=== PATIENT | female | born 1960 | race Caucasian/White ===

== ENCOUNTER 2022-05-23 19:48 | Emergency (ER) | payer MEDICARE ==
--- OUTSIDE RECORDS SUMMARY | 2022-05-23 19:52 | XMS REPORT | Continuity of Care Document ---
:1960 Author Organization [facility] t Address [address] [facility] [address] [place] [address] Care Team Providers Name Role Phone Lina Worrell Attending Clinician Nirali Canseco Attending Clinician Frieda Attending Clinician Unavailable Reji Leyva Attending Clinician Crescencio Attending Clinician Unavailable Isaiah Rodríguez Attending Clinician Frieda Admitting Clinician Unavailable Crescencio Admitting Clinician Unavailable Payers Payer Name Policy Type Policy Number Effective Date Expiration Date [facility] [id number] 2021 (MEDICARE 00:00:00 REPLACEMENT HMO) [facility] [id number] Problems Condition Condition Condition Status Onset Resolution Last Treating Co mments Source Name Details Category Date Date Treatment Clinician Date N/A N/A Diagnosis Active 2018-12-12 Mem oria Active 11-05 11:15:00 l 11/05/2018 00:00: Cornelio LOPEZ 00 [facility] Cervical Cervical Problem Active [place] disc Disc 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 Disorder 00:00: Medica l 00 Group Injury of Injury of Problem Active [place] shoulder Shoulder 8-09 da and upper and Upper 00:00: Medi karen arm Arm 00 Group Neck pain Neck pain Problem Resolve 2018-11-17 Memoria (finding) (finding) d 21:39:47 l Resolved [place] Problem 11/17/2018 [facility] Anxiety Anxiety Problem Resolve 2018-11-17 M emoria (finding) (finding) d 21:39:47 l Resolved [place] Problem 11/17/2018 [facility] Heartburn Problem Resolve 2018-11-17 M emoria (finding) Heartburn d 21:39:47 l (finding) [place] Resolved Problem 11/17/2018 [facility] Allergies, Adverse Reactions, Alerts Allergy Allergy Status Severity Reaction(s) Onset Inactive Treating Comm ents Source Name Type Date Date Clinician Cipro Allergy Active [place] to [facility] ciproflo ciproflo Active Memori a xacin xacin l [place] clindamy clindamy Active Memori a usha usha l [place] amoxicil amoxicil Active Memori a brenda brenda l Deni traMADol traMADol Active Memori a l [place] Social History Social Habit Start Date Stop Date Quantity Comments Source Social History 2018-11-12 2018-11-12 [facility] renu 17:00:43 17:00:43 Smoking Status Start Date Stop Date Source Former Smoker [facility] Medications Ordered Filled Start Stop Current Ordering Indication Dosage Frequency Signature Comments Components Source Medication Medication Date Date Medication? Clinician (SIG) Name Name Docusate No Notes: Memoria Sodium 100 11-15 (Same as: l MG Oral 22:00: Colace) [place] Capsule 00 (Do Not [Colace] Crush) Acetaminoph Yes 1 tab, PO, Memoria en 300 MG / 11-15 Q6H, PRN l Codeine 14:26: Pain Score Herm tyler Phosphate 00 4-6, X 5 30 MG Oral day, # 20 Tablet tab, 0 [Tylenol Refill(s) with Codeine #3] Fluticasone No Notes: Yves taylor propionate 8- (Same as: l 0.05 14:00: Flonase) Deni MG/ACTUAT 00 Metered Dose Nasal [place] [Flonase] Vancomycin No 2001 mg: Me moria 8- infuse l 02:00: over 2.5 [place] 00 hours cyclobenzap No Notes: Yves taylor rine 8- (Same As: l 02:00: Flexeril) Omeprazole No 20 mg, Memor ia 11-14 Route: PO, l 22:00: Drug form: ECTAB, QPM, Dosing Weight 73.2, kg, Start date: 11/14/18 17:00:00 CDT, Duration: 30 day, Stop date: 12/13/18 17:00:00 CDT Protonix No Notes: Memoria 8- Tablet l 22:00: should not be chewed or crushed. (Same as: Protonix) Alprazolam No Notes: Memor ia 0.25 MG 11-14 With food l Oral Tablet 21:04: or milk Her (Same as: Xanax) Acetaminoph No Notes: Do M emoria en 300 MG / 11-14 not exceed l Codeine 20:25: 4gm/day of Herm acetaminop 30 MG Oral hen. (Same Tablet as: [Tylenol Tylenol with with Codeine #3] Codeine # 3) Zofran No Notes: Memoria 11-14 (Same as: l 20:21: Zofran) MEDICATION WASTE Product Size: 4 mg Product Wasted: ___ mg Reglan No Notes: Memoria 11-14 (Same as: l 20:10: Reglan) Zofran No 4 mg, Memoria 11-14 Route: IV, l 20:09: Drug form: INJ, Q4H, Dosing Weight 73.2, kg, PRN Nausea, Start date: 11/14/18 15:09:00 CDT, Duration: 30 day, Stop date: 12/14/18 15:08:00 CDT, 0 Reglan No 10 mg, Memoria 11-14 Route: IV, l 17:36: ONCE, Dosing Weight 73.2, kg, Start date: 11/14/18 12:36:00 CDT, Stop date: 11/14/18 12:36:00 CDT Dilaudid No 0.5 mg, Memori a 11-14 Route: l 16:54: IVP, ONCE, Dosing Weight 73.2, kg, Priority: STAT, Start date: 11/14/18 11:54:00 CDT, Stop date: 11/14/18 11:54:00 CDT Alprazolam No Notes: Memor ia 0.25 MG 11-14 With food l Oral Tablet 16:11: or milk Her sage 00 (Same as: Xanax) glycopyrrol No Route: IV, Memoria ate (ANES) 11-14 Drug form: l 16:10: INJ, ONCE, Stop date: 11/14/18 11:10:00 CDT neostigmine No Route: IV, Memoria (ANES) 11-14 Drug form: l 16:10: INJ, ONCE, Stop date: 11/14/18 11:10:00 CDT 1/2NS + KCL No Notes: Yves taylor 20mEq/L 11-14 PREMIX IV l 1000ml 16:06: - Do Not [place] (Premix) 00 Alter 1,000 mL WASTE: F/P - Sink; E - Municipal Trash Bin Acetaminoph No Notes: Do M emoria en 325 MG / 11-14 not exceed l Hydrocodone 16:06: 4gm/day of Deni Bitartrate 00 acetaminop 10 MG Oral hen. (Same Tablet as: Hollis [Hollis 325/10) 10/325] Zofran No Notes: Memoria 11-14 (Same as: l 16:06: Zofran) [place] 00 Morphine No Notes: Memoria 11-14 (Same l 16:06: as:MORPhin Deni 00 e Sulfate) ondansetron No Route: IV, Memoria (ANES) 11-14 Drug form: l 16:00: INJ, ONCE, Stop date: 11/14/18 11:00:00 CDT dexamethaso No Route: IV, Memoria ne (ANES) 11-14 Drug form: l 14:43: INJ, ONCE, Deni 00 Stop date: 11/14/18 9:43:00 CDT midazolam No Route: IV, Me moria (ANES) 11-14 Drug form: l 14:38: SOLN, ONCE, Stop date: 11/14/18 9:38:00 CDT fentaNYL 2019- No Route: IV, Mem oria (ANES) 11-14 Drug form: l 14:38: INJ, ONCE, Stop date: 11/14/18 9:38:00 CDT propofol 2019- No Route: IV, Mem oria (ANES) 11-14 Drug form: l 14:38: INJ, ONCE, Stop date: 11/14/18 9:38:00 CDT rocuronium 2018- No Route: IV, M emoria (ANES) 11-14 Drug form: l 14:38: INJ, ONCE, Stop date: 11/14/18 9:38:00 CDT lidocaine 2018- No Route: IV, Me moria (ANES) 11-14 Drug form: l 14:38: INJ, ONCE, Stop date: 11/14/18 9:38:00 CDT propofol 2018- No Route: IV, Mem oria (ANES) 10 11-14 Drug form: l mg 13:55: INJ, Start date: 11/14/18 8:55:00 CDT, Stop date: 11/14/18 9:55:00 CDT sodium No Route: IV, Memor ia chloride 11-14 Drug form: l (ANES) 19 13:55: INJ, Start He mL + date: remifentani 11/14/18 l (ANES) 1 8:55:00 mg CDT, Stop date: 11/14/18 9:55:00 CDT vancomycin 2018- No Route: IV, M emoria (ANES) 1.5 11-14 Drug form: l gm 13:50: INJ, Start date: 11/14/18 8:50:00 CDT, Stop date: 11/14/18 9:50:00 CDT Isolyte S No Route: IV, Me moria PH 7.4 11-14 Total l (ANES) 1000 13:30: Volume: Her sage mL 00 1,000, Start date: 11/14/18 8:30:00 CDT, Stop date: 11/14/18 9:30:00 CDT Hydralazine No Notes: Yves taylor 11-14 (Same as: l 13:05: Apresoline ) Push over 5 minutes Labetalol No Notes: Memori a 11-14 (Same as: l 13:05: Normodyne, Trandate) Push over 2 minutes Give bolus over 2-3 minutes. Acetaminoph No Notes: Yves taylor en 11-14 Infuse l 13:05: over 15 minutes Do not exceed 4gm/day of acetaminop hen MEDICATION WASTE Product Size: 1000 mg Product Wasted: ___ mg Morphine No Notes: Memoria 11-14 (Same l 13:05: as:MORPhin e Sulfate) Hydromorpho No Notes: Yves taylor ne 11-14 Same as l 13:05: Dilaudid Flumazenil No Notes: Memor ia 11-14 (Same as: l 13:05: Romazicon) Naloxone No Notes: Memoria 11-14 Same as l 13:05: Narcan Ondansetron No Notes: Yves taylor 11-14 (Same as: l 13:05: Zofran) MEDICATION WASTE Product Size: 4 mg Product Wasted: ___ mg Dexamethaso No Notes: Yves taylor ne 11-14 Concentrat l 13:05: ion: 00 4mg/ml Omeprazole Yes 20 mg = 1 Me moria 20 MG 8-26 tab, PO, l Enteric 16:34: QPM, 0 [place] Coated 00 Refill(s) Tablet [Prilosec] Chlorphenir Yes 1 tab, PO, Memoria amine 8-26 BID, PRN l Maleate 4 16:32: as needed Her sage MG / 00 for Phenylephri allergy ne symptoms, Hydrochlori 0 de 10 MG Refill(s) Oral Tablet [Sudafed PE Sinus & Allergy] Fish Oil Yes 2,000 mg = Mem oria 1000 mg 8-26 2 cap, PO, l oral 16:31: QPM, 0 Deni capsule 00 Refill(s) Aspirin 81 Yes 81 mg = 1 Me moria MG Enteric 8- tab, PO, l Coated 16:30: QPM Deni Tablet 00 Alprazolam Yes 0.25 mg = Me moria 0.25 MG 11-12 1 tab, PO, l Oral Tablet 16:29: Daily, PRN Deni 00 as needed for anxiety cyclobenzap Yes 10 mg = 1 M emoria rine 10 mg 11-12 tab, PO, l oral tablet 16:28: Bedtime, 0 [place] 00 Refill(s) Fluticasone Yes 1 spray, Me moria propionate 11-12 NASAL, l 0.05 16:27: Daily, 0 Deni MG/ACTUAT 00 Refill(s) Metered Dose Nasal [place] [Flonase] alprazolam alprazolam No alprazolam [place] 0.25 mg 0.25 mg 0.25 mg da tablet tablet tablet [facility] cyclobenzap cyclobenzap No cyclobenza [place] rine 10 mg rine 10 mg sara 10 da tablet tablet mg tablet [facility]ica [facility] Vital Signs Vital Name Observation Time Observation Value Comments Source BP Diastolic 2018-08-24 00:00:00 84 [facility] Height 2018-08-24 00:00:00 62.5 [in_i] [facility] BMI (Body Mass 2018-08-24 00:00:00 29.7 kg/m2 [facility] Medical Index) Group BP Systolic 2018-08-24 00:00:00 131 mm[Hg] [facility] Body Weight 2018-08-24 00:00:00 2640 [oz_av] [facility] BP Diastolic 2018-06-25 00:00:00 87 mm[Hg] [facility] Height 2018-06-25 00:00:00 62.5 [in_i] [facility] BMI (Body Mass 2018-06-25 00:00:00 30.1 kg/m2 [facility] Medical Index) Group BP Systolic 2018-06-25 00:00:00 128 mm[Hg] [facility] Body Weight 2018-06-25 00:00:00 2672 [oz_av] [facility] BP Diastolic 2018-04-27 00:00:00 81 mm[Hg] [facility] Height 2018-04-27 00:00:00 62.5 [in_i] [facility] BMI (Body Mass 2018-04-27 00:00:00 29.7 kg/m2 [facility] Medical Index) Group BP Systolic 2018-04-27 00:00:00 124 mm[Hg] [facility] Body Weight 2018-04-27 00:00:00 2640 [oz_av] [facility] BP Diastolic 2018-03-15 00:00:00 90 mm[Hg] [facility] Height 2018-03-15 00:00:00 62.5 [in_i] [facility] BMI (Body Mass 2018-03-15 00:00:00 29.2 kg/m2 [facility] Medical Index) Group BP Systolic 2018-03-15 00:00:00 125 mm[Hg] [facility] Body Weight 2018-03-15 00:00:00 2592 [oz_av] [facility] Temperature Oral (F) 2018-11-15 13:00:00 97.8 F [facility] Heart Rate 2018-11-15 13:00:00 [facility] Respitory Rate 2018-11-15 13:00:00 Memori al [place] Systolic (mm Hg) 2018-11-15 13:00:00 Yves rial [place] Diastolic (mm Hg) 2018-11-15 13:00:00 Mem orial [place] Height 2018-11-15 10:00:00 154.94 cm [facility] Temperature Oral (F) 2018-11-15 09:00:00 97.6 F [facility] Heart Rate 2018-11-15 09:00:00 [facility] [place] Respitory Rate 2018-11-15 09:00:00 Memori al Deni Systolic (mm Hg) 2018-11-15 09:00:00 Yevs rial Deni Diastolic (mm Hg) 2018-11-15 09:00:00 Mem orial Deni Temperature Oral (F) 2018-11-15 05:00:00 97.8 F [facility] Heart Rate 2018-11-15 05:00:00 [facility] Respitory Rate 2018-11-15 05:00:00 Melanie dodd [place] Systolic (mm Hg) 2018-11-15 05:00:00 Yves husain [place] Diastolic (mm Hg) 2018-11-15 05:00:00 Mem orial [facility] Height 2018-11-15 00:09:00 154.94 cm [facility] Weight 2018-11-15 00:09:00 [facility] BMI Calculated 2018-11-15 00:09:00 Memori al [place] Height 2018-11-12 16:40:00 157.48 cm [facility] [place] Weight 2018-11-12 16:40:00 [facility] BMI Calculated 2018-11-12 16:40:00 Melanie al [place] Procedures Procedure Date / Time Performing Clinician Source Performed MRI, cervical spine, w/o 2018-04-06 00:00:[address] [facility] Medical contrast Group PCL - Reconstruction of [facility] posterior cruciate ligament Skin operation [facility] Encounters Start End Encounter Admission Attending Care Care Encounter Source Date/Time Date/Time Type Type Clinicians Facility Department ID 2022-04-29 2022-04-29 CAV Sera [id number]. [id number]. [facility] [id number] [facility] 19:00:00 20:00:00 Iyanoye [id number] Medical [id number] 2022-01-18 2022-01-18 CAV Nirali 2.16.840. [id number]. [facility] [id number] [facility] 19:00:00 20:00:00 Ajith [id number] [id number] Medical [id number] 2021-10-07 2021-10-07 CAV Nirali 2.16.840. 2.16.840.1. [facility] [id number] [facility] 14:00:00 15:00:00 Ajith [id number] Medical [id number] 2021-10-05 2021-10-05 Outpatient Thomas_T [facility] [id number] [facility] 10:02:00 10:02:00 0719 Medica l Group 2021-10-01 2021-10-01 [facility] [id number] [facility] 06:19:00 06:19:00 0715 Medica l Group 2021-06-30 2021-06-30 Care Marlisa 2.16.840. 2.16.840.1. [facility] [id number] [facility] 14:30:00 15:00:00 OnDejoon Leyva [id number] [id number] [facility] [id number] 2020-12-21 2020-12-21 Outpatient [facility] [id number] [facility] 08:00:00 08:00:00 1004 Medica l Group 2019-05-06 2019-05-06 Outpatient A_Tamrard [facility] [id number] [place] 12:07:00 12:07:00 0217 Medical Group 2018-11-14 2018-11-15 [facility] [id number] Memoria 16:06:00 17:02:00 sukhi Cheema 00 l [facility] 2018-11-14 2018-11-15 Outpatient Anne [facility] [id number] 11:06:00 12:02:00 Isaiah Torrie 00 2018-11-14 2018-11-14 Outpatient [facility] [id number] [facility] 11:06:00 11:06:00 2018-08-24 2018-08-24 Miranda Martinez [facility] [place] [place] - [address] [place] 00:00:00 00:00:00 MD Mazin: [address] [place] [address] , Ph. 2018-06-25 2018-06-25 Miranda [place] - [address] [place] 00:00:00 00:00:00 MD Mazin: [address] [address], [place] [address] , Ph. 2018-04-27 2018-04-27 Miranda Martinez [facility] [place] - [address] [place] 00:00:00 00:00:00 MD Mazin: [address] [facility] [address], [place] [address] , Ph. 2018-03-15 2018-03-15 [place] - [address] [place] 00:00:00 00:00:00 MD Mazin: [address] [facility] - [address], [place] [address] , Ph. Results Test Description Test Time Test Comments Results Result Comments Source [facility] 2018-11-15 10:20:00 Test Item Value Reference Range Interpretation Comme nts AGAP (test code = AGAP) 13.9 10.0-20.0 [facility]LJ2074-36-40 10:20:00 Test Item Value Reference Range Interpretation Comments Glucose Lvl (test code = Glucose Lvl) 112 70-99 [facility]CkogadkVBXBROARNPCU1797-01-20 10:20:00 Test Item Value Reference Range Interpretation Comments BUN (test code = BUN) 14 7-22 [facility]HhtkbhzRWLMHOMAGVGJ8244-59-01 10:20:00 Test Item Value Reference Range Interpretation Comments Creatinine Lvl (test code = Creatinine 0.60 0.50-1.40 Lvl) [facility]ZeksxukNBTXEMJRFVLA0472-11-90 10:20:00 Test Item Value Reference Range Interpretation Comments Sodium Lvl (test code = Sodium Lvl) 142 135-145 [facility]QhlxjfxORBUQQMMZXDK5575-16-60 10:20:00 Test Item Value Reference Range Interpretation Comments Potassium Lvl (test code = Potassium 3.9 3.5-5.1 Lvl) [facility] HospitalOosefipDRNWSDTOJNZN1167-25-32 10:20:00 Test Item Value Reference Range Interpretation Comments Chloride Lvl (test code = Chloride Lvl) 109 95-109 [facility] HospitalLdwienxKRPHEVEOOMTO6333-62-50 10:20:00 Test Item Value Reference Range Interpretation Comments CO2 (test code = CO2) 23 24-32 [facility] HospitalEmrvcnyQWZDWCIUXONR4000-82-77 10:20:00 Test Item Value Reference Range Interpretation Comments Calcium Lvl (test code = Calcium Lvl) 8.9 8.5-10.5 [facility] HospitalGpqanvqKYBNMENFUVCV6576-89-55 10:20:00 Test Item Value Reference Range Interpretation Comments eGFR (test code = eGFR) 102 [facility]RordsgzDDUTXMNMCK4147-76-59 10:20:00 Test Item Value Reference Range Interpretation Comments WBC (test code = WBC) 13.4 3.7-10.4 [facility] CenterXcxvbuxKUFLUWUUDE5643-29-25 10:20:00 Test Item Value Reference Range Interpretation Comments RBC (test code = RBC) 4.31 4.20-5.40 [facility] CenterRoxpeviBYUPSLJAYO7998-98-84 10:20:00 Test Item Value Reference Range Interpretation Comments Hgb (test code = Hgb) 13.5 12.0-16.0 [facility] CenterJrkicirOAUQFSLFUV2465-68-10 10:20:00 Test Item Value Reference Range Interpretation Comments Hct (test code = Hct) 39.9 36.0-48.0 [facility] CenterTdjauawDYPYVMODNT7548-21-82 10:20:00 Test Item Value Reference Range Interpretation Comments MCV (test code = MCV) 92.5 80.0-98.0 [facility] CenterIdikhkhUZRJPLTHYP2730-66-45 10:20:00 Test Item Value Reference Range Interpretation Comments MCH (test code = MCH) 31.3 pg 27.0-31.0 [facility] CenterYelhmdzIGTDZOWYDL5591-17-07 10:20:00 Test Item Value Reference Range Interpretation Comments MCHC (test code = MCHC) 33.9 32.0-36.0 [facility] CenterNpwfnofWMVNYNNNLB9329-51-20 10:20:00 Test Item Value Reference Range Interpretation Comments RDW (test code = RDW) 13.3 11.5-14.5 [facility] CenterEolpmxkBSUKUCPXYO5090-01-59 10:20:00 Test Item Value Reference Range Interpretation Comments Platelet (test code = Platelet) 196 133-450 [facility] CenterDdalyfuLFDWNDUTJK3293-03-41 10:20:00 Test Item Value Reference Range Interpretation Comments MPV (test code = MPV) 10.2 7.4-10.4 [facility] CenterBhmhypoNTUDEKVPNQ1878-25-03 10:20:00 Test Item Value Reference Range Interpretation Comments Segs (test code = Segs) 85.0 45.0-75.0 [facility] CenterTpwvhtoZTXYNGVYAL7456-96-97 10:20:00 Test Item Value Reference Range Interpretation Comments Lymphocytes (test code = Lymphocytes) 10.2 20.0-40.0 [facility] CenterTccixeiRGXYADELCP6845-67-80 10:20:00 Test Item Value Reference Range Interpretation Comments Monocytes (test code = Monocytes) 4.7 2.0-12.0 [facility] CenterLehvuqtFOONGPVDEJ1051-19-65 10:20:00 Test Item Value Reference Range Interpretation Comments Basophils (test code = 0.1 See_Comment [Aut omated message] The Basophils) system which ge nerated this result tra nsmitted reference range : <=1.0. The reference r tabatha was not used to int erpret this result as normal/abnormal . [facility] CenterPqdlasrAVKNRREEAT8252-09-37 10:20:00 Test Item Value Reference Range Interpretation Comments Neutrophils # (test code = Neutrophils 11.4 1.5-8.1 #) [facility] CenterPjetsbnOOLCOYWATN2148-71-48 10:20:00 Test Item Value Reference Range Interpretation Comments Lymphocytes # (test code = Lymphocytes 1.4 1.0-5.5 #) [facility] CenterFxtuysrIHWOSYHODU6828-59-28 10:20:00 Test Item Value Reference Range Interpretation Comments Monocytes # (test code 0.6 See_Comment [Aut omated message] The = Monocytes #) system which generated this result tra nsmitted reference range : <=0.8. The reference r tabatha was not used to int erpret this result as normal/abnormal . [facility] CenterAjtbmrpTIQHZFNBCY4652-59-54 16:44:00 Test Item Value Reference Range Interpretation Comments Monocytes (test code = Monocytes) 5.4 2.0-12.0 [facility] CenterWiuugnvEOCVTZESVE7549-12-58 16:44:00 Test Item Value Reference Range Interpretation Comments Eosinophils (test code = 0.7 See_Comment [A utomated message] The Eosinophils) system which ge nerated this result tra nsmitted reference range : <=4.0. The reference r tabatha was not used to int erpret this result as normal/abnormal . [facility] CenterWfkkrlwXQOLWRZQGN5058-66-28 16:44:00 Test Item Value Reference Range Interpretation Comments Basophils (test code = 0.4 See_Comment [Aut omated message] The Basophils) system which ge nerated this result tra nsmitted reference range : <=1.0. The reference r tabatha was not used to int erpret this result as normal/abnormal . [facility] CenterBrtarsoKDQIFGZABV3065-11-23 16:44:00 Test Item Value Reference Range Interpretation Comments Neutrophils # (test code = Neutrophils 3.1 1.5-8.1 #) [facility] CenterHpnvlpqXBRKTFCKYT9894-54-94 16:44:00 Test Item Value Reference Range Interpretation Comments Lymphocytes # (test code = Lymphocytes 2.6 1.0-5.5 #) [facility] CenterSubzyayBOARGULLWP0461-83-18 16:44:00 Test Item Value Reference Range Interpretation Comments Monocytes # (test code 0.3 See_Comment [Aut omated message] The = Monocytes #) system which generated this result tra nsmitted reference range : <=0.8. The reference r tabatha was not used to int erpret this result as normal/abnormal . [facility] CenterTuvbndmUGJIYCCDXE2604-42-22 16:44:00 Test Item Value Reference Range Interpretation Comments Eosinophils # (test code 0.0 See_Comment [A utomated message] The = Eosinophils #) system whic h generated this result tra nsmitted reference range : <=0.5. The reference r tabatha was not used to int erpret this result as normal/abnormal . [facility] CenterIgbpqroECRGTEJJHU9375-60-95 16:44:00 Test Item Value Reference Range Interpretation Comments Basophils # (test code 0.0 See_Comment [Aut omated message] The = Basophils #) system which generated this result tra nsmitted reference range : <=0.2. The reference r tabatha was not used to int erpret this result as normal/abnormal . [facility] CenterYgodqzqEHIXFXSTOF6222-49-46 16:44:00 Test Item Value Reference Range Interpretation Comments WBC (test code = WBC) 6.0 3.7-10.4 [facility] CenterYqxftuiZGIMDGQAMX0687-87-35 16:44:00 Test Item Value Reference Range Interpretation Comments RBC (test code = RBC) 4.66 4.20-5.40 [facility] CenterMdmgzewBCRJYUCNLQ3990-24-04 16:44:00 Test Item Value Reference Range Interpretation Comments Hgb (test code = Hgb) 14.3 12.0-16.0 [facility]dhijwyOGZJJHWRAV6821-[facility]-14 16:44:00 Test Item Value Reference Range Interpretation Comments Hct (test code = Hct) 42.9 36.0-48.0 [facility] HospitalGeiyatjSHADCASNJU4479-59-24 16:44:00 Test Item Value Reference Range Interpretation Comments MCV (test code = MCV) 92.1 80.0-98.0 [facility] CenterCoqizmqYDFDAYTUFR2651-19-90 16:44:00 Test Item Value Reference Range Interpretation Comments MCH (test code = MCH) 30.7 pg 27.0-31.0 [facility] HospitalHndwpgzNFPLWJBGPP4928-37-25 16:44:00 Test Item Value Reference Range Interpretation Comments MCHC (test code = MCHC) 33.3 32.0-36.0 [facility] CenterKngwymdDGPJQUBUDB9607-57-61 16:44:00 Test Item Value Reference Range Interpretation Comments RDW (test code = RDW) 13.2 11.5-14.5 [facility] CenterDuamivvRCPNCDYDKN8273-91-74 16:44:00 Test Item Value Reference Range Interpretation Comments Platelet (test code = Platelet) 193 133-450 [facility] CenterUiwbmvjNVFWTBVVVQ9708-51-21 16:44:00 Test Item Value Reference Range Interpretation Comments MPV (test code = MPV) 9.9 7.4-10.4 [facility] CenterRwnmfcwAXLOLCSIBL4421-97-24 16:44:00 Test Item Value Reference Range Interpretation Comments PTT (test code = PTT) 33.8 s 22.9-35.8 [facility] CenterNhscfrdYUSDWMMLKW7648-57-49 16:44:00 Test Item Value Reference Range Interpretation Comments INR (test code = INR) 0.93 1 0.85-1.17 [facility] CenterTdtvudcHGCZSIYOAA4641-90-34 16:44:00 Test Item Value Reference Range Interpretation Comments PT (test code = PT) 12.3 s 12.0-14.7 [facility]MjrycxfHQALMJQIYY6376-03-01 16:44:00 Test Item Value Reference Range Interpretation Comments HIV Ag/Ab 4th Gen Negative *NA*(11/12/18 (test code = HIV 11:44 AM) Ag/Ab 4th Gen) [facility] BANK [id number] 16:44:00 Test Item Value Reference Range Interpretation Comments ABO/Rh (test code = ABO/Rh) O POS [facility] BANK [id number] 16:44:00 Test Item Value Reference Range Interpretation Comments Antibody Scrn (test Negative (11/12/18 code = Antibody Scrn) 11:44 AM) [facility]2019-08-26 16:44:00 Test Item Value Reference Range Interpretation Comments Glucose Lvl (test code = Glucose Lvl) 102 70-99 [facility]2019-08-26 16:44:00 Test Item Value Reference Range Interpretation Comments BUN (test code = BUN) 18 7-22 [facility]2019-08-26 16:44:00 Test Item Value Reference Range Interpretation Comments Creatinine Lvl (test code = Creatinine 0.80 0.50-1.40 Lvl) [facility]2019-08-26 16:44:00 Test Item Value Reference Range Interpretation Comments Sodium Lvl (test code = Sodium Lvl) 142 135-145 [facility]2019-08-26 16:44:00 Test Item Value Reference Range Interpretation Comments Potassium Lvl (test code = Potassium 4.2 3.5-5.1 Lvl) [facility]2019-08-26 16:44:00 Test Item Value Reference Range Interpretation Comments Chloride Lvl (test code = Chloride Lvl) 107 95-109 [facility]2019-08-26 16:44:00 Test Item Value Reference Range Interpretation Comments CO2 (test code = CO2) 26 24-32 [facility]2019-08-26 16:44:00 Test Item Value Reference Range Interpretation Comments Calcium Lvl (test code = Calcium Lvl) 9.3 8.5-10.5 [facility]2019-08-26 16:44:00 Test Item Value Reference Range Interpretation Comments eGFR (test code = eGFR) 83 [facility]2019-08-26 16:44:00 Test Item Value Reference Range Interpretation Comments AGAP (test code = AGAP) 13.2 10.0-20.0 [id number] 16:44:00 Test Item Value Reference Range Interpretation Comments Segs (test code = Segs) 51.0 45.0-75.0 [id number] 16:44:00 Test Item Value Reference Range Interpretation Comments Lymphocytes (test code = Lymphocytes) 42.5 20.0-40.0 Kaila Cheema
[2022-05-23 21:38] LABS: Absolute Lymphocytes (CBC) 3.4 K/uL (0.7-4.9); Hematocrit 43.1 % (36.0-45.0); Lymphocytes % 46.8 % (15.3-44.8); MCV 92.3 fL (80-100); MPV 9.4 fL (7.6-11.3); RBC Red Blood Cell Count 4.67 M/uL (3.86-4.86)
--- NOTE | 2022-05-23 21:43 | RAD REPORT ---
EXAM DESCRIPTION: Tameka Veliz (2 Views)05/23/2022 9:33 pm CLINICAL HISTORY: Congestion COMPARISON: None FINDINGS: The lungs appear clear of acute infiltrate. The heart is normal size IMPRESSION: No acute abnormalities displayed
[2022-05-23 21:55] LABS: ALT/SGPT 49 U/L (13-56); AST/SGOT 25 U/L (15-37); Albumin 3.9 g/dL (3.4-5.0); Alkaline Phosphatase 96 U/L (45-117); BUN Blood Urea Nitrogen 16 mg/dL (7-18); Bicarbonate 32 mmol/L (21-32); Bilirubin Total 0.2 mg/dL (0.2-1.0); Glomerular Filtration Rate 64 ml/min (=/>90); Glucose Level 111 mg/dL (74-106); Potassium 3.8 mmol/L (3.5-5.1); Protein, Total 7.5 g/dL (6.4-8.2); Sodium Level 139 mmol/L (136-145); Troponin High Sensitivity 3.1 pg/mL (<58.9)
[2022-05-23 21:56] LABS: Bilirubin Direct < 0.1 mg/dL (0-0.2)
--- NOTE | 2022-05-23 22:35 | ER ---
Nurse's Notes [facility] Name: Abigail Carrizales Age: 62 yrs Sex: Female : 1960 Arrival Date: 05/23/2022 Time: 19:54 Bed DIS5 Private MD: Diagnosis: Nasal congestion;Upper respiratory congestion, seasonal allergy, feeling unwell, noncardiac chest pain, dizziness Presentation: 05/23 20:45 Chief complaint: Patient states: pt was diagnosed with strep a week ago and treated but bb she is also having chest pressure and is feeling light-headed she was sent her for a cardiac work-up by urgent care today. Coronavirus screen: At this time, the client does not indicate any symptoms associated with coronavirus-19. Ebola Screen: No symptoms or risks identified at this time. Initial Sepsis Screen: Does the patient meet any 2 criteria? No. Patient's initial sepsis screen is negative. Does the patient have a suspected source of infection? No. Patient's initial sepsis screen is negative. Risk Assessment: Do you want to hurt yourself or someone else? Patient reports no desire to harm self or others. Onset of symptoms was May 17, 2022. 20:45 Method Of Arrival: Ambulatory bb 20:45 Acuity: HUMPHREY 3 bb Triage Assessment: 20:47 General: Appears in no apparent distress. Behavior is calm, cooperative. Pain: bb Complains of pain in chest Pain currently is 5 out of 10 on a pain scale. Neuro: Level of Consciousness is awake, alert, obeys commands, Oriented to person, place, time, situation. Cardiovascular: Capillary refill < 3 seconds Patient's skin is warm and dry. Respiratory: Respiratory effort is unlabored, Respiratory pattern is regular. GI: No signs and/or symptoms were reported involving the gastrointestinal system. Derm: Skin is pink, warm \T\ dry. Musculoskeletal: Circulation, motion, and sensation intact. Historical: - Allergies: 20:47 PENICILLINS; bb 20:47 Ciprofloxacin; bb 20:47 Bactrim; bb 20:47 tramadol; bb - Home Meds: 20:47 None [Active]; bb - PMHx: 20:47 Hypercholesterolemia; basal cell of skin; bb - PSHx: 20:47 Moh's procedure; bb - Immunization history:: Client reports having NOT received the Covid vaccine. - Social history:: Smoking status: Patient reports the use of cigarette tobacco products. - Family history:: not pertinent. - Hospitalizations: : No recent hospitalization is reported. Screenin:30 [facility] ED Fall Risk Assessment (Adult) History of falling in the last 3 months, jb4 including since admission No falls in past 3 months (0 pts) Confusion or Disorientation No (0 pts) Score/Fall Risk Level 0 - 2 = Low Risk Oriented to surroundings, Maintained a safe environment. Abuse screen: Denies threats or abuse. Nutritional screening: No deficits noted. Tuberculosis screening: No symptoms or risk factors identified. Assessment: 22:30 General: Appears in no apparent distress. comfortable, Behavior is calm, cooperative, jb4 appropriate for age. Pain: Complains of pain in chest Pain does not radiate. Pain currently is 5 out of 10 on a pain scale. Quality of pain is described as aching. Neuro: Level of Consciousness is awake, alert, obeys commands, Oriented to person, place, time, situation. Cardiovascular: Patient's skin is warm and dry. Respiratory: Airway is patent Respiratory effort is even, unlabored, Respiratory pattern is regular, symmetrical. GI: No signs and/or symptoms were reported involving the gastrointestinal system. : No signs and/or symptoms were reported regarding the genitourinary system. EENT: No signs and/or symptoms were reported regarding the EENT system. Derm: Skin is intact, Skin is pink, warm \T\ dry. Musculoskeletal: Circulation, motion, and sensation intact. Range of motion: intact in all extremities. Vital Signs: 20:45 BP 147 / 96; Pulse 83; Resp 16 S; Temp 98(O); Pulse Ox 100% on R/A; Weight 73.03 kg bb (R); Height 5 ft. 2 in. (157.48 cm) (R); Pain 5/10; 20:45 Body Mass Index 29.45 (73.03 kg, 157.48 cm) bb ED Course: 19:54 Patient arrived in ED. ja2 20:47 Triage completed. bb 20:47 Arm band placed on. bb 21:01 Shadi Hdz MD is Attending Physician. sp4 21:31 Basic Metabolic Panel Sent. rv1 21:32 CBC with Diff Sent. rv1 21:32 LFT's Sent. rv1 21:32 Troponin HS Sent. rv1 21:32 Inserted saline lock: 20 gauge in left antecubital area, using aseptic technique. Blood rv1 collected. 22:23 Aniceto Leone, RN is Primary Nurse. jb4 22:30 Patient has correct armband on for positive identification. Placed in gown. Bed in low jb4 position. Call light in reach. Side rails up X 1. Client placed on continuous cardiac and pulse oximetry monitoring. NIBP monitoring applied. quality assurance monitor final on. 23:07 No provider procedures requiring assistance completed. IV discontinued, intact, jb4 bleeding controlled, No redness/swelling at site. Pressure dressing applied. Patient maintains SpO2 saturation greater than 95% on room air. Administered Medications: 22:36 Drug: Benadryl (diphenhydrAMINE) 50 mg Route: PO; jb4 Medication: 22:30 VIS not applicable for this client. jb4 Outcome: 22:35 Discharge ordered by . sp4 23:07 Discharged to home ambulatory. jb4 23:07 Condition: stable 23:07 Discharge instructions given to patient, Instructed on discharge instructions, follow up and referral plans. medication usage, Demonstrated understanding of instructions, follow-up care, medications, Prescriptions given X 2. 23:07 Patient left the ED. jb4 Signatures: Mariana Gross RN RN bb Aniceto Leone, RN RN jb4 Nadiya Bejarano Rebecca rv1 Shadi Hdz MD MD sp4
--- NOTE | 2022-05-23 22:35 | EDPHYS ---
[facility] Name: Abigail Carrizales Age: 62 yrs Sex: Female : 1960 Arrival Date: 05/23/2022 Time: 19:54 Bed DIS5 Private MD: ED Physician Shadi Hdz HPI: 05/23 21:01 This 62 yrs old Female presents to ER via Ambulatory with complaints of sp4 Dizziness, Chest Pressure, Back Pain. 21:14 Very pleasant 62-year-old female presents to the ER feeling unwell and with some sp4 shortness of breath starting on 05/14/2022. Patient was evaluated at the [place] emergency walking department and had normal chest x-ray, she was treated for streptococcal pharyngitis with Rocephin injection and was prescribed cefdinir p.o., today patient reported some dizziness, chest discomfort, and some dyspnea as well, she denied fever and denied vomiting. Historical: - Allergies: 20:47 PENICILLINS; bb 20:47 Ciprofloxacin; bb 20:47 Bactrim; bb 20:47 tramadol; bb - Home Meds: 20:47 None [Active]; bb - PMHx: 20:47 Hypercholesterolemia; basal cell of skin; bb - PSHx: 20:47 Moh's procedure; bb - Immunization history:: Client reports having NOT received the Covid vaccine. - Social history:: Smoking status: Patient reports the use of cigarette tobacco products. - Family history:: not pertinent. - Hospitalizations: : No recent hospitalization is reported. ROS: 21:14 Constitutional: Negative for fever, chills, and weight loss, patient reported some sp4 dizziness and feeling unwell Eyes: Negative for injury, pain, redness, and discharge, ENT: Negative for injury, pain, and discharge, Neck: Negative for injury, pain, and swelling, Cardiovascular: Negative for palpitations, and edema, positive for chest discomfort and for shortness of breath Respiratory: Negative for cough, wheezing, and pleuritic chest pain, positive for shortness of breath Abdomen/GI: Negative for abdominal pain, nausea, vomiting, diarrhea, and constipation, Back: Negative for injury and pain, : Negative for injury, bleeding, discharge, and swelling, MS/Extremity: Negative for injury and deformity, Skin: Negative for injury, rash, and discoloration, Neuro: Negative for headache, weakness, numbness, tingling, and seizure, Psych: Negative for depression, anxiety, suicide ideation, homicidal ideation, and hallucinations, Allergy/Immunology: Negative for hives, rash, and allergies, Endocrine: Negative for neck swelling, polydipsia, polyuria, polyphagia, and marked weight changes, Hematologic/Lymphatic: Negative for swollen nodes, abnormal bleeding, and unusual bruising. Exam: 21:14 Constitutional: This is a well developed, well nourished patient who is awake, alert, sp4 and in no acute distress. Head/Face: Normocephalic, atraumatic. Eyes: Pupils equal round and reactive to light, extra-ocular motions intact. Lids and lashes normal. Conjunctiva and sclera are non-icteric and not injected. Cornea within normal limits. Periorbital areas with no swelling, redness, or edema. ENT: Nares patent. No nasal discharge, no septal abnormalities noted. Tympanic membranes are normal and external auditory canals are clear. Oropharynx with no redness, swelling, or masses, exudates, or evidence of obstruction, uvula midline. Mucous membranes moist. Neck: Trachea midline, no thyromegaly or masses palpated, and no cervical lymphadenopathy. Supple, full range of motion without nuchal rigidity, or vertebral point tenderness. No Meningismus. Chest/axilla: Normal chest wall appearance and motion. Nontender with no deformity. No lesions are appreciated. Cardiovascular: Regular rate and rhythm with a normal S1 and S2. No gallops, murmurs, or rubs. Normal PMI, no JVD. No pulse deficits. Respiratory: Lungs have equal breath sounds bilaterally, clear to auscultation and percussion. No rales, rhonchi or wheezes noted. No increased work of breathing, no retractions or nasal flaring. Abdomen/GI: Soft, non-tender, with normal bowel sounds. No distension or tympany. No guarding or rebound. No evidence of tenderness throughout. Back: No spinal tenderness. No costovertebral tenderness. Full range of motion. MS/ Extremity: Pulses equal, no cyanosis. Neurovascular intact. Full, normal range of motion. Neuro: Awake and alert, GCS 15, oriented to person, place, time, and situation. Cranial nerves II-XII grossly intact. Motor strength 5/5 in all extremities. Sensory grossly intact. Cerebellar exam normal. Normal gait. Psych: Awake, alert, with orientation to person, place and time. Behavior, mood, and affect are within normal limits. 21:14 ECG was reviewed by the Attending Physician. EKG done at 2104 there is normal sinus sp4 rhythm with a rate at 78, no acute ST elevation or depression, no ectopy, normal axis, normal EKG Vital Signs: 20:45 BP 147 / 96; Pulse 83; Resp 16 S; Temp 98(O); Pulse Ox 100% on R/A; Weight 73.03 kg bb (R); Height 5 ft. 2 in. (157.48 cm) (R); Pain 5/10; 20:45 Body Mass Index 29.45 (73.03 kg, 157.48 cm) bb MDM: 22:14 Patient medically screened. sp4 22:32 Differential diagnosis: cardiac arrhythmia, hyperventilation, hypovolemia, sp4 near-syncope, vertigo. Data reviewed: vital signs, nurses notes, lab test result(s), EKG, radiologic studies, plain films. ED course: 70-year-old female presents with some chest discomfort and feeling unwell today patient has unremarkable work-up and her system checkup is normal patient will be advised to take as needed Claritin in the morning, Mucinex as well [id number] and Benadryl before bedtime [id number]. Patient at this time stable for discharge home with follow-up with her primary doctor in 7 to 10 days. 05/23 21:13 Order name: Chest Pa And Lat (2 Views) XRAY sp4 05/23 21:13 Order name: Basic Metabolic Panel sp4 05/23 21:13 Order name: CBC with Diff sp4 05/23 21:13 Order name: LFT's sp4 05/23 21:13 Order name: Troponin HS sp4 05/23 21:13 Order name: EKG; Complete Time: 21:14 sp4 05/23 21:13 Order name: EKG - Nurse/Tech; Complete Time: 21:21 sp4 05/23 21:13 Order name: Labs collected and sent; Complete Time: 21:32 sp4 05/23 21:39 Order name: CBC with Automated Diff; Complete Time: 22:27 EDMS 05/23 21:43 Order name: RAD; Complete Time: 22:27 EDMT 05/23 21:57 Order name: Basic Metabolic Panel; Complete Time: : EDMT 05/23 21:57 Order name: Liver (Hepatic) Function; Complete Time: : EDMS 05/23 21:57 Order name: Troponin High Sensitivity; Complete Time: 22:27 EDMS EC:14 Rate is 78 beats/min. Rhythm is regular. QRS Register is Normal. WI interval is normal. QRS sp4 interval is normal. QT interval is normal. No ST changes noted. Clinical impression: Normal ECG. Interpreted by me. Administered Medications: 22:36 Drug: Benadryl (diphenhydrAMINE) 50 mg Route: PO; jb4 Disposition Summary: 05/23/22 22:35 Discharge Ordered Location: Home sp4 Problem: new sp4 Symptoms: are unchanged sp4 Condition: Stable sp4 Diagnosis - Nasal congestion sp4 - Upper respiratory congestion, seasonal allergy, feeling unwell, noncardiac chest sp4 pain, dizziness Followup: sp4 - With: Private Physician - When: 7 - 10 days - Reason: Re-evaluation by your physician Discharge Instructions: - Discharge Summary Sheet sp4 - Allergies, Adult, [id number] sp4 Forms: - Thank You Letter sp4 Prescriptions: - guaifenesin 600 mg Oral tablet extended release 12hr - take 1 tablet by ORAL route every 12 hours as needed; 60 tablet; Refills: 0, sp4 Product Selection Permitted - Zyrtec 10 mg Oral Tablet - take 1 tablet by ORAL route once daily As needed; 20 tablet; Refills: 0, sp4 Product Selection Permitted Signatures: Dispatcher [employer] Mariana Torres, RN RN Aniceto Staples RN RN jb4 Shadi Hdz MD MD sp4
[2022-05-23] MEDS ORDERED: DIPHENHYDRAMINE 25 MG TAB/CAP ONE (22:39)
[2022-05-23 23:51] VITALS: BP 147/96; TEMP 98; O2SAT 100
--- NOTE | 2022-05-24 17:33 | EKG ---
Test Date: 2022-05-23 Test Time: 21:04:42 [employer] Trainer: AISHA MEASUREMENT RESULTS: Intervals: Rate: 78 IA: 180 QRSD: 74 QT: 368 QTc: 419 [place]: P: 55 IA: 180 QRS: 47 T: 62 INTERPRETIVE STATEMENTS: Normal sinus rhythm Normal ECG Compared to ECG 06/17/1999 21:42:00 No significant changes Electronically Signed On 05-24-22 17:31:09 [employer] by Bob Plaza
== END 2022-05-23 23:07 | disposition home or self-care (01) ==
LOC: ER 19:48
DX: R09.81 Nasal congestion (principal); R07.89 Other chest pain; R09.89 Other specified symptoms and signs involving the circulatory and respiratory systems; J30.2 Other seasonal allergic rhinitis; Z72.0 Tobacco use; Z88.0 Allergy status to penicillin; Z88.1 Allergy status to other antibiotic agents; Z88.3 Allergy status to other anti-infective agents; Z88.5 Allergy status to narcotic agent
CPT/HCPCS: 36415; 71046; 80048; 80076; 84484; 85025; 93005; 99285